=== PATIENT | male | born 1990 | race Caucasian/White ===

== ENCOUNTER 2019-02-23 23:55 | Emergency (ER) | payer OTHER ==
[~2019-02-23] VITALS: Ht 177.8 cm; Wt 83.9 kg
--- NOTE | 2019-02-24 00:11 | NUR ---
BIB [facility] [employer]ER [employer], PATIENT WAS HIDING IN ATTIC AND INHALED INSULATION FROM ATTIC. PATIENT C/O COUGH, NO SOB NOTED, RESPIRATIONS EVEN AND UNLABORED, RA 98%. ABLE TO SPEAK IN FULL SENTENCES
--- NOTE | 2019-02-24 00:12 | NUR ---
CORRECTION. PT BIB [facility] 83 NOT RA 909.
--- NOTE | 2019-02-24 00:35 | NUR ---
Patient discharged to [employer] in stable conditon. Written and verbal after care instructions given. Patient verbalizes understanding of instructions. PATIENT LEFT WITH STABLE GAIT.
[2019-02-24 00:36] VITALS: BP 121/59
== END 2019-02-24 00:36 ==
LOC: ER 23:58
DX: J98.01 Acute bronchospasm (principal)
CPT/HCPCS: A4663